=== PATIENT | female | born 1955 | race Caucasian/White ===

== ENCOUNTER → 2016-11-13 | Outpatient (CLI) | payer MEDICARE, MEDICAID ==
--- NOTE | 2016-11-13 16:22 | REPMRS ---
Patient History The patient states she has not had a clinical breast exam in over a year. Patient is postmenopausal and is nulliparous. Family history of breast cancer in 2 maternal aunts. Digital Woman Screen Mammo: November 13, 2016 - Exam #: [id number] Bilateral CC and MLO view(s) were taken. Technologist: Lara Yarbrough Technologist Prior study comparison: November 14, 2015, digital woman screen mammo performed at [facility]. November 12, 2014, digital woman screen mammo performed at [facility]. November 10, 2013, digital woman screen mammo performed at [facility]. FINDINGS: The breast tissue is almost entirely fat. There has been no change in the appearance of the mammogram from the prior studies. There is no interval development of dominant mass, architectural distortion, or clustered microcalcification typical of malignancy. ASSESSMENT: BI-RADS/ACR category 1 mammogram. Negative. Recommendation Routine screening mammogram of both breasts in 1 year (for women over age 40). This mammogram was interpreted with the aid of an FDA-approved computer-aided dectection system. Electronically Signed By: Luis Eduardo Landaverde MD 11/13/16 [id number]
== END ==
LOC: M WHC 12:53
PROVIDERS: ATTEND Family Medicine
DX: Z12.31 Encounter for screening mammogram for malignant neoplasm of breast (principal)

== ENCOUNTER 2017-08-25 08:04 | Day surgery (SDC) | payer MEDICARE, MEDICAID ==
[~2017-08-25 08:04] MED LIST: ACETAMINOPHEN 325 MG TAB PO; PHENYLEPHRINE HCL 10 % OPHTH. SOL 5ML OD; PROPARACAINE 0.5% OPHTH SOL 15ML OD
[2017-08-25] MEDS ORDERED: MIDAZOLAM INJ 2 MG/2 ML VIAL (J2250) As Ordered (08:09)
[2017-08-25] MEDS ORDERED: fentaNYL 100 MCG/2 ML INJECTION (J3010) As Ordered (08:09)
[2017-08-25] MEDS ORDERED: TRIMETHOBENZAMIDE 300 MG CAP PO (08:15)
[2017-08-25] MEDS ORDERED: AcetaZOLAMIDE 500 MG ER CAP PO (08:15)
[2017-08-25] MEDS ORDERED: KETOROLAC 0.5% OPHTH SOLN OD (08:15)
[2017-08-25] MEDS: CYCLOPENTOLATE 2% OPHTH SOLN 2ML BTL OD (09:11)
[2017-08-25] MEDS: TROPICAMIDE 1% OPHTH SOLN 2ML OD (09:11)
[2017-08-25] MEDS: OFLOXACIN 0.3 % (OCUFLOX) OPTH SOL 5ML OD (09:11)
[2017-08-25] MEDS: LIDOCAINE 3.5 % 1ML OPHTH TOPICAL GEL OU (09:11)
[2017-08-25] MEDS: PHENYLEPHRINE 2.5% OPHTH SOL 2ML OD (09:11)
[2017-08-25] MEDS: POVIDONE-IODINE 5% OPHTH PREP SOL 30ML As Ordered (09:55)
[2017-08-25] MEDS: BALANCED SALT IRRIGATION SOLUTION 500ML BAG (FOR OR EYE MACHINE) As Ordered (10:01)
[2017-08-25] MEDS: LIDOCAINE 1% SDV 5 ML VIAL As Ordered (10:01)
[2017-08-25] MEDS: HEALON DUET (HEALON 10MG/ML 0.55ML & HEALON ENDOCOAT 30MG/ML 0.85ML) As Ordered (10:01)
== END 2017-08-25 11:17 | disposition home or self-care (01) ==
LOC: M SDC 08:04
DX: H25.11 Age-related nuclear cataract, right eye (principal); E78.5 Hyperlipidemia, unspecified; E03.9 Hypothyroidism, unspecified; F41.9 Anxiety disorder, unspecified; F32.9 Major depressive disorder, single episode, unspecified; Z88.0 Allergy status to penicillin; Z88.2 Allergy status to sulfonamides; Z88.8 Allergy status to other drugs, medicaments and biological substances; Z79.899 Other long term (current) drug therapy
CPT/HCPCS: 66984

== ENCOUNTER 2017-09-22 08:55 | Day surgery (SDC) | payer MEDICARE, MEDICAID ==
[2017-09-22] MEDS: CEFUROXIME 1MG/0.1ML INTRACAMERAL INJ As Ordered (06:51)
[~2017-09-22 08:55] MED LIST changes: -PHENYLEPHRINE HCL 10 % OPHTH. SOL 5ML OD; +PHENYLEPHRINE HCL 10 % OPHTH. SOL 5ML OS; -PROPARACAINE 0.5% OPHTH SOL 15ML OD; +PROPARACAINE 0.5% OPHTH SOL 15ML OS
[2017-09-22] MEDS: CYCLOPENTOLATE 2% OPHTH SOLN 2ML BTL OS (09:15)
[2017-09-22] MEDS: LIDOCAINE 3.5 % 1ML OPHTH TOPICAL GEL OU (09:15)
[2017-09-22] MEDS: PHENYLEPHRINE 2.5% OPHTH SOL 2ML OS (09:20)
[2017-09-22] MEDS: TROPICAMIDE 1% OPHTH SOLN 2ML OS (09:25)
[2017-09-22] MEDS: OFLOXACIN 0.3 % (OCUFLOX) OPTH SOL 5ML OS (09:30)
[2017-09-22] MEDS ORDERED: fentaNYL 100 MCG/2 ML INJECTION (J3010) As Ordered (10:15)
[2017-09-22] MEDS ORDERED: MIDAZOLAM INJ 2 MG/2 ML VIAL (J2250) As Ordered (10:15)
[2017-09-22] MEDS: LIDOCAINE 1% SDV 5 ML VIAL As Ordered (10:25)
[2017-09-22] MEDS: POVIDONE-IODINE 5% OPHTH PREP SOL 30ML As Ordered (10:25)
[2017-09-22] MEDS: BALANCED SALT IRRIGATION SOLUTION 500ML BAG (FOR OR EYE MACHINE) As Ordered (10:25)
[2017-09-22] MEDS: HEALON DUET (HEALON 10MG/ML 0.55ML & HEALON ENDOCOAT 30MG/ML 0.85ML) As Ordered (10:25)
[2017-09-22] MEDS ORDERED: AcetaZOLAMIDE 500 MG ER CAP PO (11:00)
[2017-09-22] MEDS ORDERED: TRIMETHOBENZAMIDE 300 MG CAP PO (11:00)
[2017-09-22] MEDS: KETOROLAC 0.5% OPHTH SOLN OS (11:11)
== END 2017-09-22 11:36 | disposition home or self-care (01) ==
LOC: M SDC 08:55
DX: H25.12 Age-related nuclear cataract, left eye (principal); E78.5 Hyperlipidemia, unspecified; F41.9 Anxiety disorder, unspecified; F32.9 Major depressive disorder, single episode, unspecified; Z88.0 Allergy status to penicillin; Z88.2 Allergy status to sulfonamides; Z88.8 Allergy status to other drugs, medicaments and biological substances; Z79.899 Other long term (current) drug therapy
CPT/HCPCS: 66984

== ENCOUNTER → 2017-11-15 | Outpatient (CLI) | payer MEDICARE, MEDICAID | LOC: M WHC 12:58 | DX: Z12.31 Encounter for screening mammogram for malignant neoplasm of breast (principal) | CPT/HCPCS: 77067 ==

== ENCOUNTER → 2018-11-15 | Outpatient (CLI) | payer MEDICARE, MEDICAID ==
[~2018-11-15] MED LIST changes: -ACETAMINOPHEN 325 MG TAB PO; +COLA100C5; +KETO2CR; +LEVO50TA5; -PHENYLEPHRINE HCL 10 % OPHTH. SOL 5ML OS; +PRAV20TA2; -PROPARACAINE 0.5% OPHTH SOL 15ML OS; +SERT-155; +TUMS500C PO; +VITA100067 PO
--- NOTE | 2018-11-15 14:31 | REPMRS ---
Patient History The patient states she has not had a clinical breast exam in over a year. Family history of breast cancer in maternal aunt, breast cancer in maternal aunt. No Hormone Replacement Therapy 3D TOMOSYNTHESIS WAS PERFORMED. [facility] lifetime risk for breast cancer is 12.7%. Digital Woman Screen Mammo: November 15, 2018 - Exam #: [id number] Bilateral CC and MLO view(s) were taken. Technologist: Maggy Gandhi, Technologist Prior study comparison: November 15, 2017, bilateral digital woman screen mammo performed at [facility] [employer] [facility]. November 13, 2016, digital woman screen mammo performed at [facility] [employer] [facility]. FINDINGS: There are scattered fibroglandular densities. There has been no change in the appearance of the mammogram from the prior studies. There is a mild amount of residual fibroglandular tissue which is fairly symmetric. There is no interval development of dominant mass, architectural distortion, or clustered microcalcification suggestive of malignancy. Assessment: BI-RADS/ACR category 1 mammogram. Negative Mammogram. Recommendation Routine screening mammogram in 1 year (for women over age 40). This mammogram was interpreted with the aid of an FDA-approved computer-aided dectection system. Electronically Signed By: Aamir Lopez MD 11/15/18 [id number]
== END ==
LOC: M WHC 13:25
PROVIDERS: ATTEND Family Medicine
DX: Z12.31 Encounter for screening mammogram for malignant neoplasm of breast (principal)

== ENCOUNTER → 2019-11-16 | Outpatient (CLI) | payer MEDICARE, MEDICAID ==
[~2019-11-16] MED LIST changes: -SERT-155; +SERT50TA29
--- NOTE | 2019-11-16 15:09 | REPMRS ---
Patient History The patient states she has not had a clinical breast exam in over a year. Family history of breast cancer in maternal aunt, breast cancer in maternal aunt. No Hormone Replacement Therapy Digital Woman Screen Mammo: November 16, 2019 - Exam #: [id number] Bilateral CC and MLO view(s) were taken. Technologist: Kalina Gonzalez, Technologist Prior study comparison: November 15, 2018, bilateral digital woman screen mammo performed at [facility]. November 15, 2017, bilateral digital woman screen mammo performed at [facility]. November 13, 2016, digital woman screen mammo performed at [facility]. FINDINGS: The breast tissue is almost entirely fat. The [employer] volumetric breast density category is: A. There has been no change in the appearance of the mammogram from the prior studies. There is no interval development of dominant mass, architectural distortion, or grouped microcalcification typical of malignancy. 3-D tomosynthesis shows no additional findings. Assessment: BI-RADS/ACR category 1 mammogram. Negative Mammogram. Recommendation Routine screening mammogram of both breasts in 1 year (for women over age 40). This patient's Lifetime Breast Cancer RIsk is estimated at 12.1 %. This mammogram was interpreted with the aid of an FDA-approved computer-aided dectection system. Electronically Signed By: Luis Eduardo Landaverde MD 11/16/19 [id number]
== END ==
LOC: M WHC 14:14
PROVIDERS: ATTEND Nurse Practitioner Family
DX: Z12.31 Encounter for screening mammogram for malignant neoplasm of breast (principal)